=== PATIENT | male | born 1955 | race African-American/Black ===

== ENCOUNTER → 2021-05-05 | Outpatient (CLI) | payer MEDICARE ==
[2021-05-05 20:59] LABS: Folate, Serum 8.6 ng/mL (4.40-31.00); Magnesium 2.3 mg/dL (1.5-2.4)
== END | disposition home or self-care (01) ==
LOC: LABWHC1 13:07
PROVIDERS: ATTEND Psychiatry & Neurology Neurology
DX: G62.9 Polyneuropathy, unspecified (principal); Z79.899 Other long term (current) drug therapy
CPT/HCPCS: 36415; 82306; 82310; 82607; 82746; 83036; 83735